=== PATIENT | male | born 1995 | race American Indian/Alaskan Native ===

== ENCOUNTER 2017-11-05 01:30 | Emergency (ER) | payer OTHER ==
[2017-11-05 02:33] VITALS: BP 136/87
[2017-11-05] MEDS ORDERED: MOTRIN ONE (03:09)
[2017-11-05] MEDS ORDERED: MOTRIN PO ONE (03:10)
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
== END 2017-11-05 05:01 | disposition home or self-care (01) ==
LOC: ED 01:30
DX: M25.531 Pain in right wrist (principal); F17.200 Nicotine dependence, unspecified, uncomplicated